=== PATIENT | female | born 2005 | race Caucasian/White ===

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

== ENCOUNTER 2023-09-05 01:28 | Emergency (ER) | payer MEDICAID ==
[~2023-09-05] VITALS: Ht 165.1 cm; Wt 51.0 kg
[2023-09-05 03:28] LABS: BASOPHILS % (AUTO) 0.5 % (0.0-2.0); EOSINOPHILS % (AUTO) 1.8 % (1.0-6.0); HEMATOCRIT 34.1 % (36-46); LYMPHOCYTES # (AUTO) 1.5 K/uL (1.0-4.8); LYMPHOCYTES % (AUTO) 22.6 % (22.0-44.0); MEAN CORPUSCULAR HEMOGLOBIN 24.1 pg (26.0-34.0); MEAN CORPUSCULAR HGB CONC 32.3 G/dL (31.0-37.0); MEAN CORPUSCULAR VOLUME 75 fL (80-100); MONOCYTES # (AUTO) 0.6 K/uL (0.1-1.0); MONOCYTES % (AUTO) 9.1 % (2.0-9.0); NEUTROPHILS # (AUTO) 4.4 K/uL (1.8-7.7); PLATELET COUNT (AUTO) 294 K/uL (150-450); RED BLOOD CELL COUNT(AUTO) 4.58 MIL/uL (4.00-5.20); RED CELL DISTRIBUTION WIDTH 16.2 % (11.5-14.5); WHITE BLOOD COUNT (AUTO) 6.7 K/uL (4.5-11.0)
[2023-09-05] MEDS ORDERED: MAG HYDROX/ALUMINUM HYD/SIMETH ES 30 ML SUSPENSION UDCUP PO ONE (03:30)
[2023-09-05] MEDS ORDERED: FAMOTIDINE 20 MG TABLET PO ONE (03:30)
[2023-09-05 03:42] LABS: RBC MORPHOLOGY COMMENT ABNORMAL RBC MORPH
[2023-09-05 05:00] VITALS: BP 124/74; PULSE 86; RESP 16; TEMP 98.3
== END 2023-09-05 06:00 | disposition home or self-care (01) ==
LOC: EMS 01:29
DX: R10.13 Epigastric pain (principal)
CPT/HCPCS: 85025; 99283